=== PATIENT | female | born 1945 | race American Indian/Alaskan Native ===

== ENCOUNTER 2017-08-29 10:36 | Emergency (ER) | payer MEDICARE ==
[2017-08-29 10:36] VITALS: BMI 34.9
--- NOTE | 2017-08-29 10:52 | C.PDOC ---
History Of Present Illness 72 year old female presents to the ER complaining of intermittent dizziness ( room spinning sensation) intermittently for the last 3 months. She reports dizziness is worse since yesterday evening. Patient denies chest pain, shortness of breath, palpations, headache, visual changes, extremity weakness, slurred speech, facial droop. Time Seen by Provider: 08/29/17 10:38 Chief Complaint (Nursing): Dizziness/Lightheaded History Per: Patient History/Exam Limitations: no limitations Onset/Duration Of Symptoms: Days Current Symptoms Are (Timing): Still Present Associated Symptoms Preceding Syncopal Episode: Lightheadedness Past Medical History Reviewed: Historical Data, Nursing Documentation, Vital Signs Vital Signs: Last Vital Signs Temp 98.6 F 08/29/17 14:28 Pulse 70 08/29/17 14:28 Resp 18 08/29/17 14:28 BP 140/87 08/29/17 14:28 Pulse Ox 98 08/29/17 14:28 - Medical History PMH: Asthma, HTN Surgical History: Appendectomy - [facility] Procedures [facility]YSICAL THERAPY [facility] (12/29/13) Family History: States: No Known Family Hx - Social History Hx Tobacco Use: No Hx Alcohol Use: No Hx Substance Use: No - Immunization History Hx Tetanus Toxoid Vaccination: No Hx Influenza Vaccination: No Hx Pneumococcal Vaccination: Yes (2012) Review Of Systems Eyes: Negative for: Vision Change Cardiovascular: Negative for: Chest Pain, Palpitations Respiratory: Negative for: Shortness of Breath Gastrointestinal: Negative for: Nausea, Vomiting, Abdominal Pain, Diarrhea Neurological: Positive for: Dizziness. Negative for: Weakness, Change in Speech , Headache Physical Exam - Physical Exam Appears: Well, Non-toxic, Other (Mildly uncomfortable ) Skin: Normal Color, Warm, Dry Head: Atraumatic, Normacephalic Eye(s): bilateral: Normal Inspection, PERRL, EOMI Oral Mucosa: Moist Cardiovascular: Rhythm Regular, No Murmur Respiratory: Normal Breath Sounds, No Rales, No Rhonchi, No Wheezing Gastrointestinal/Abdominal: Normal Exam, Bowel Sounds, Soft, No Tenderness Extremity: Normal ROM, No Pedal Edema, No Calf Tenderness Neurological/Psych: Oriented x3, Normal Speech, Normal Cognition, Normal Cranial Nerves, No Cerebellar Signs, Normal Motor, Normal Sensation, Normal Reflexes ED Course And Treatment - Laboratory Results Result Diagrams: 08/29/17 11:34 08/29/17 11:34 ECG: Interpreted By Me, Viewed By Me ECG Interpretation: Normal Interpretation Of ECG: Normal sinus rhythm, Normal [place], No acute changes Rate From EC (bpm) O2 Sat by Pulse Oximetry: 99 (RA) Pulse Ox Interpretation: Normal - CT Scan/US CT HEAD Other Rad Studies (CT/US): Read By Radiologist, Radiology Report Reviewed CT/US Interpretation: Accession No. : [id number]. Patient Name / ID : TATE PATEL / [id number]. Exam Date : 08/29/2017 11:41:43 ( Approved ). Study Comment : Sex / Age : F / 72Y. Creator : Nash Elizabeth MD. Dictator : [employer] : Corporate Lawyer : Nash Elizabeth MD. Approver2 : Report Date : 08/29/2017 12:07:02. My Comment : . PROCEDURE: CT HEAD WITHOUT CONTRAST. HISTORY: DIZZINESS. COMPARISON: None available. TECHNIQUE : Axial computed tomography images were obtained through the head/brain without intravenous contrast. Radiation dose: Total exam DLP = 908.31 mGy-cm. This CT exam was performed using one or more of the following dose reduction techniques: Automated exposure control, adjustment of the mA and/or kV according to patient size, and/or use of iterative reconstruction technique. FINDINGS: HEMORRHAGE: No acute parenchymal, subarachnoid or extra-axial intracranial hemorrhage. BRAIN: Mild chronic appearing periventricular and scattered patchy deep and subcortical white matter ischemic changes are noted. Additionally, there also appear to be a few scattered chronic appearing bilateral basal nuclei lacunar type infarcts. . Note that the possibility of a small hyperacute infarct cannot be completely excluded on based on this exam. Mild generalized volume loss. VENTRICLES: Unremarkable. No hydrocephalus. CALVARIUM: No acute calvarial fractures. Note made of mild hyperostosis frontalis interna. 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 PARANASAL SINUSES: Unremarkable as visualized. No significant inflammatory changes. MASTOID AIR CELLS: Unremarkable as visualized. No inflammatory changes. OTHER FINDINGS: None. IMPRESSION: No acute intracranial hemorrhage. Chronic white matter and basal nuclei ischemic changes as above. Progress Note: Blood work, CT head, EKG ordered and reviewed. Patient given IV NS bolus, PO Meclizine. Reevaluation Time: 14:20 Reassessment Condition: Improved (On reassessment, patient is resting comfortably and states she feels better. Dizziness has resolved, and patient is ambulating normally in the ED. Blood worik, UA, CT head unremarkable for acute findings. Patient given Rx for meclzine, and was instructed to follow up with ENT within 1 week. She understands she should return to ED if symptoms worsen.) Disposition Counseled Patient/Family Regarding: Studies Performed, Diagnosis, Need For Followup, Rx Given - Disposition Referrals: Surinder Avina MD [Staff Provider] - Noa Escalera DO [Staff Provider] - Disposition: HOME/ ROUTINE Disposition Time: 14:20 Condition: STABLE Additional Instructions: FOLLOW UP WITH YOUR DOCTOR IN 1-2 DAYS, AND WITH ENT SPECIALIST WITHIN 1 WEEK USE MEDICATION NEEDED RETURN TO ER IMMEDIATELY IF SYMPTOMS WORSEN Prescriptions: Meclizine [Meclizine*] 25 mg PO Q6 #20 tab Instructions: Vertigo (a Type of Dizziness) (DC) Forms: [employer] (Urdu) Print Language: NICARAGUAN - Clinical Impression Clinical Impression: Peripheral vertigo - Scribe Statement The provider has reviewed the documentation as recorded by the Linh Duckworth All medical record entries made by the Linh were at my direction and personally dictated by me. I have reviewed the chart and agree that the record accurately reflects my personal performance of the history, physical exam, medical decision making, and the department course for this patient. I have also personally directed, reviewed, and agree with the discharge instructions and disposition.
[2017-08-29] MEDS ORDERED: Sodium Chloride 0.9% 250 ML IV ONE ×2 (11:26→12:39)
[2017-08-29 11:37] LABS: BASO # 0.1 K/uL (0.0-0.2); BASO % 1.5 % (0.0-2.0); EOS # 0.2 K/uL (0.0-0.7); EOS % 3.4 % (0.0-4.0); HEMOGLOBIN 12.3 g/dL (11.0-16.0); LYMPH # 2.2 K/uL (1.0-4.3); LYMPH % 31.6 % (20.0-40.0); MEAN CORPUSCULAR HEMOGLOBIN 29.6 pg (27.0-31.0); MEAN CORPUSCULAR HGB CONC 33.6 g/dL (33.0-37.0); MEAN PLATELET VOLUME 9.8 fL (7.2-11.7); MONO # 0.6 K/uL (0.0-0.8); MONO % 8.3 % (0.0-10.0); NEUT # 3.9 K/uL (1.8-7.0); NEUT % 55.2 % (50.0-75.0); NRBC % 0.1 % (0.0-2.0); RBC 4.14 Mil/uL (3.80-5.20); RED CELL DISTRIBUTION WIDTH 13.4 % (11.5-14.5)
[2017-08-29 11:47] LABS: PROTHROMBIN TIME 11.3 SECONDS (9.7-12.2)
[2017-08-29 11:53] LABS: ALB/GLOB RATIO 1.4 (1.0-2.1); ALT/SGPT 28 U/L (9-52); AST/SGOT 23 U/L (14-36); BLOOD UREA NITROGEN 18 mg/dL (7-17); CALCIUM 10.8 mg/dl (8.6-10.4); GFR AFRICAN-AMERICAN > 60; GFR NON-AFRICAN AMERICAN > 60
[2017-08-29 12:04] LABS: B-TYPE NATRIURETIC PEPTIDE 110 pg/mL (0-900); CK-MB 0.88 ng/mL (0.0-3.38)
--- NOTE | 2017-08-29 12:08 | CT ---
PROCEDURE: CT HEAD WITHOUT CONTRAST. HISTORY: DIZZINESS COMPARISON: None available. TECHNIQUE: Axial computed tomography images were obtained through the head/brain without intravenous contrast. Radiation dose: Total exam DLP = 908.31 mGy-cm. This CT exam was performed using one or more of the following dose reduction techniques: Automated exposure control, adjustment of the mA and/or kV according to patient size, and/or use of iterative reconstruction technique. FINDINGS: HEMORRHAGE: No acute parenchymal, subarachnoid or extra-axial intracranial hemorrhage. BRAIN: Mild chronic appearing periventricular and scattered patchy deep and subcortical white matter ischemic changes are noted. Additionally, there also appear to be a few scattered chronic appearing bilateral basal nuclei lacunar type infarcts. . Note that the possibility of a small hyperacute infarct cannot be completely excluded on based on this exam. Mild generalized volume loss. VENTRICLES: Unremarkable. No hydrocephalus. CALVARIUM: No acute calvarial fractures. 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 PARANASAL SINUSES: Unremarkable as visualized. No significant inflammatory changes. MASTOID AIR CELLS: Unremarkable as visualized. No inflammatory changes. OTHER FINDINGS: None. IMPRESSION: No acute intracranial hemorrhage. Chronic white matter and basal nuclei ischemic changes as above.
[2017-08-29 13:52] LABS: SQUAMOUS EPITHIAL 2 /hpf (0-5); URINE BILIRUBIN NEGATIVE (NEGATIVE); URINE BLOOD NEGATIVE (NEGATIVE); URINE CLARITY Clear (Clear); URINE COLOR Yellow (YELLOW); URINE GLUCOSE (UA) NORMAL (Normal); URINE LEUKOCYTE ESTERASE NEG Leu/uL (Negative); URINE PROTEIN NEGATIVE (NEGATIVE); URINE UROBILINOGEN NORMAL mg/dL (0.2-1.0)
[2017-08-29 14:29] VITALS: BP 140/87; PULSE 70; RESP 18; TEMP 98.6
[2017-08-30 14:02] VITALS: O2SAT 99
== END 2017-08-29 14:29 | disposition home or self-care (01) ==
LOC: C.ER 10:36
DX: H81.399 Other peripheral vertigo, unspecified ear (principal); I10 Essential (primary) hypertension; Z87.891 Personal history of nicotine dependence
CPT/HCPCS: 70450; 80053; 81001; 82550; 82553; 82948; 83880; 84484; 85025; 85610; 85730; 99285; J7040

== ENCOUNTER 2017-09-03 10:58 | Emergency (ER) | payer MEDICARE ==
[2017-09-03 10:58] VITALS: BMI 34.9
[2017-09-03 11:09] VITALS: PULSE 78; TEMP 98.1; O2SAT 99
--- NOTE | 2017-09-03 11:28 | C.PDOC ---
History Of Present Illness Patient is a 72 y/o F, with hx of chronic lumbar back pain from multiple herniated discs, presents to the ER complaining of bilateral lumbar back pain. Patient states that she ran out of her anti-inflammatory medication. Patient reports that she has to follow up with ortho on September 10 and her PMD was supposed to refer her to pain mgmt. Denies having weakness, numbness, tingling, and bowel/ bladder incontinence. Denies dysuria, hematuria, unilateral flank pain, vaginal discharge or fever. Reports that this is consistent with prior exacerbations of pain is requesting just medication Time Seen by Provider: 09/03/17 11:16 Chief Complaint (Nursing): Back Pain History Per: Patient History/Exam Limitations: no limitations Onset/Duration Of Symptoms: Days Current Symptoms Are (Timing): Still Present Severity: Moderate Previous Symptoms: Back Pain Past Medical History Reviewed: Historical Data, Nursing Documentation, Vital Signs Vital Signs: Last Vital Signs Temp 98.1 F 09/03/17 11:06 Pulse 78 09/03/17 11:06 Resp 16 09/03/17 12:09 BP 150/78 09/03/17 12:09 Pulse Ox 99 09/03/17 12:12 - Medical History PMH: Asthma, HTN, TIA Surgical History: Appendectomy - [facility] Procedures PHYSICAL THERAPY [facility] (12/29/13) Family History: States: No Known Family Hx - Social History Hx Tobacco Use: No Hx Alcohol Use: Yes Hx Substance Use: No - Immunization History Hx Tetanus Toxoid Vaccination: No Hx Influenza Vaccination: No Hx Pneumococcal Vaccination: Yes (2012) Review Of Systems Constitutional: Negative for: Fever, Chills, Weakness, Malaise, Weight loss Cardiovascular: Negative for: Chest Pain, Palpitations Respiratory: Negative for: Cough, Shortness of Breath, SOB with Excertion, Wheezing Gastrointestinal: Negative for: Nausea, Vomiting, Abdominal Pain, Constipation Genitourinary: Negative for: Dysuria, Incontinence Musculoskeletal: Positive for: Back Pain Skin: Negative for: Rash Neurological: Negative for: Weakness, Numbness, Incoordination, Change in Speech , Altered Mental Status, Headache Physical Exam - Physical Exam Appears: Well, Non-toxic, No Acute Distress Skin: Normal Color, Warm, Dry Head: Atraumatic, Normacephalic Eye(s): bilateral: Normal Inspection, PERRL, EOMI Nose: Normal Oral Mucosa: Moist Neck: Supple Chest: Symmetrical Cardiovascular: Rhythm Regular Respiratory: Normal Breath Sounds Gastrointestinal/Abdominal: Soft, No Tenderness, No Mass, No Distention Back: No Vertebral Tenderness, Muscle Spasm (paraspinal muscle spasms) Extremity: Normal ROM Neurological/Psych: Oriented x3, Normal Speech Gait: Steady ED Course And Treatment O2 Sat by Pulse Oximetry: 99 (RA) Pulse Ox Interpretation: Normal Progress Note: Past medical records show history of herniated discs with recent MRI and X-Rays. Patient treated with Toradol IM and Flexeril PO.On re-evalution , patient feels better. He is neurologically intact and ambulating around the ED. She denies weakness, numbness, tingling. The patient has ortho follow-up. She is aware of the need to see pain mgmt and reports that she will again ask her PMD for a referral. Disposition - Disposition Disposition: HOME/ ROUTINE Disposition Time: 11:58 Condition: GOOD Additional Instructions: Follow-up with your orthopedist as scheduled. Follow-up with PMD within 2 days. Return to ED if condition worsens. Prescriptions: Naproxen 500 mg PO BID #20 tab Instructions: Low Back Pain (DC) Forms: [employer] (Gibraltarian) - Clinical Impression Clinical Impression: Chronic back pain - Scribe Statement The provider has reviewed the documentation as recorded by the Linh San Provider Attestation: All medical record entries made by the Bryceibhasmukh were at my direction and personally dictated by me. I have reviewed the chart and agree that the record accurately reflects my personal performance of the history, physical exam, medical decision making, and the department course for this patient. I have also personally directed, reviewed, and agree with the discharge instructions and disposition.
[2017-09-03 12:10] VITALS: BP 150/78; RESP 16
== END 2017-09-03 12:09 | disposition home or self-care (01) ==
LOC: C.ER 10:58
DX: G89.29 Other chronic pain (principal); M54.5 Low back pain
CPT/HCPCS: 96372; 99283; J1885

== ENCOUNTER 2018-05-01 08:19 | Outpatient (CLI) | payer MEDICARE | END 2018-05-01 08:20 | disposition home or self-care (01) | LOC: C.LAB 08:19 | DX: N64.3 Galactorrhea not associated with childbirth (principal) ==

== ENCOUNTER 2018-05-01 08:29 | Outpatient (CLI) | payer MEDICARE | END 2018-05-01 08:30 | disposition home or self-care (01) | LOC: C.LAB 08:29 | DX: E11.9 Type 2 diabetes mellitus without complications (principal); Z00.00 Encounter for general adult medical examination without abnormal findings; R76.8 Other specified abnormal immunological findings in serum; I10 Essential (primary) hypertension; E83.52 Hypercalcemia ==